=== PATIENT | female | born 1940 | race Caucasian/White ===

== ENCOUNTER 2017-02-24 06:13 | Inpatient (IN) | payer MEDICARE, BC ==
[2017-02-24] MEDS ORDERED: Lactated Ringers 1,000 ML IV SCH (07:00)
[2017-02-24] MEDS ORDERED: Scopolamine 1.5 MG Transdermal Patch TRDERM SCH (07:00)
[2017-02-24] MEDS ORDERED: Povidone-Iodine 10% Soln 118.25 ML Bottle ONE (07:16)
[2017-02-24] MEDS ORDERED: Succinylcholine/Normal Saline 200 MG/10 ML Syringe ONE (08:03)
[2017-02-24] MEDS ORDERED: Propofol 200 MG/20 ML SDV ONE ×4 (08:03→12:54)
[2017-02-24] MEDS ORDERED: fentaNYL 250 MCG/5 ML SDV ONE ×2 (08:03→08:14)
[2017-02-24] MEDS ORDERED: Rocuronium 50 MG/5 ML Vial ONE ×2 (08:03→10:03)
[2017-02-24] MEDS ORDERED: Ondansetron 4 MG/2 ML SDV ONE ×2 (08:03→13:52)
[2017-02-24] MEDS ORDERED: Dexamethasone 4 MG/ML SDV ONE (08:03)
[2017-02-24] MEDS ORDERED: Neostigmine Methylsulfate 1 MG/ML 5 ML Syringe ONE (08:03)
[2017-02-24] MEDS ORDERED: ceFAZolin 1 GM in Premix Bag 1 BAG IV ONE (08:30)
[2017-02-24] MEDS ORDERED: ceFAZolin 2 GM in Sodium Chloride 0.9% 50 ML IV ONE (08:30)
[2017-02-24] MEDS: SODIUM CHLORIDE 0.9% IV SCH ×3 (09:10→15:48)
[2017-02-24] MEDS: TRANEXAMIC ACID IV SCH ×3 (09:10→15:48)
[2017-02-24] MEDS: Ketamine 500 MG/5 ML MDV IV ONE ×2 (09:48→15:48)
[2017-02-24] MEDS: Thrombin (Bovine) 5,000 Unit Kit ONE ×2 (09:55→10:48)
[2017-02-24] MEDS ORDERED: ceFAZolin 1 GM Vial ONE (12:37)
[2017-02-24] MEDS ORDERED: Thrombin (Bovine) 5,000 Unit Kit ONE (12:37)
[2017-02-24] MEDS ORDERED: ePHEDrine 50 MG/ML SDV ONE (12:56)
[2017-02-24] MEDS ORDERED: Lactated Ringers 1,000 ML ONE ×3 (13:00→13:28)
[2017-02-24] MEDS: Ropivacaine 49.25 ML, Ketorolac 30 MG, EPINEPHrine 0.5 MG, cloNIDine 80 MCG, Sodium Chl... INJECT ONE ×10 (13:59→15:48)
[2017-02-24] MEDS ORDERED: Ondansetron 4 MG/2 ML SDV IVPUSH PRN (14:28)
[2017-02-24] MEDS ORDERED: HYDROmorphone 1 MG/ML Syringe IVPUSH PRN (14:28)
[2017-02-24] MEDS ORDERED: Sodium Chloride 0.9% 10 ML Syringe FLUSH PRN (14:28)
[2017-02-24] MEDS ORDERED: Naloxone 0.4 MG/ML SDV IVPUSH PRN (14:28)
[2017-02-24] MEDS ORDERED: Acetaminophen/oxyCODONE 325-5 MG Tab PO PRN (14:28)
[2017-02-24] MEDS ORDERED: Aluminum Hydroxide/Magnesium Hydroxide/Simethicone Susp 30 ML Cup PO PRN (14:28)
[2017-02-24] MEDS ORDERED: Zolpidem 5 MG Tab PO PRN (14:28)
[2017-02-24] MEDS ORDERED: Magnesium Hydroxide 400 MG/5 ML Susp 30 ML Cup PO PRN (14:28)
[2017-02-24] MEDS ORDERED: Sennosides 8.6 MG Tab PO PRN (14:28)
[2017-02-24] MEDS ORDERED: Dexamethasone 4 MG/ML SDV IVPUSH SCH (16:00)
[2017-02-24] MEDS: Ketorolac 30 MG/ML SDV IVPUSH SCH ×2 (16:15→22:44)
[2017-02-24] MEDS: ceFAZolin 1 GM in Premix Bag 1 BAG IV SCH (16:15)
--- NOTE | 2017-02-24 17:22 | PCM.PN ---
- General Info Date of Service: 02/24/17 Functional Status: Reports: pain controlled, urinating - Review of Systems Pulmonary: Denies: shortness of breath Musculoskeletal: Reports: back pain Neurological: Reports: Tingling (mild right lower leg) Systems Review Comment:: No acute events since her arrival on the floor following surgery. She reports moderate back pain at this time. No pain radiating into her legs but her left foot feels a little tingly. Right foot feels like it moves a little bit slow but no tingling. Vital signs have all been stable. Urine output is borderline low. No complaints of shortness of breath or abdominal pain. - Patient Data Vitals - most recent: Last Vital Signs Temp 36.9 C 02/24/17 17:10 Pulse 71 02/24/17 17:10 Resp 18 02/24/17 17:10 BP 100/52 L 02/24/17 17:10 Pulse Ox 100 02/24/17 17:10 Weight - most recent: 57.153 kg I&O - last 24 hours: Intake & Output 02/24/17 02/24/17 02/24/17 06:59 14:59 22:59 Intake Total 2600 Balance 2600 Med Orders - Current: Current Medications Al Hydroxide/Mg Hydroxide (Mag-Al Plus) 30 ml PO Q4H PRN PRN Reason: Indigestion Alprazolam (Xanax) 0.125 mg PO TID [facility] Citalopram Hydrobromide (Celexa) 5 mg PO DAILY [facility] Dexamethasone (Dexamethasone) 4 mg IVPUSH Q6H [facility] Stop: 02/25/17 10:01 Last Admin: 02/24/17 16:15 Dose: 4 mg Diazepam (Valium) 5 mg IVPUSH Q6H PRN PRN Reason: Spasms Hydromorphone HCl (Dilaudid) 1 mg IVPUSH Q2H PRN PRN Reason: Pain Last Admin: 02/24/17 16:10 Dose: 1 mg Cefazolin Sodium/Dextrose 1 gm (/ Premix) 50 mls @ 100 mls/hr IV Q8H [facility] Stop: 02/25/17 08:29 Last Admin: 02/24/17 16:15 Dose: 100 mls/hr Lactated Ringer's (Ringers, Lactated) 500 mls @ 500 mls/hr IV ASDIRECTED [facility] Stop: 02/24/17 18:31 Lactated Ringer's (Ringers, Lactated) 1,000 mls @ 75 mls/hr IV ASDIRECTED [facility] Ketorolac Tromethamine (Toradol) 15 mg IVPUSH Q6H [facility] Stop: 02/24/17 22:01 Last Admin: 02/24/17 16:15 Dose: 15 mg Magnesium Hydroxide (Milk Of Magnesia) 30 ml PO BID PRN PRN Reason: Constipation Naloxone HCl (Narcan) 0.2 mg IVPUSH ONETIME PRN PRN Reason: Oversedation Non-Formulary Medication (Mirtazapine [Remeron]) 22.5 mg PO BEDTIME [facility] Ondansetron HCl (Zofran) 8 mg IVPUSH Q4H PRN PRN Reason: Nausea/Vomiting Oxycodone/Acetaminophen (Percocet 325-5 Mg) 2 tab PO Q4H PRN PRN Reason: Pain Scopolamine (Transderm-Scop) 1.5 mg TRDERM Q72H [facility] Stop: 02/27/17 05:00 Last Admin: 02/24/17 07:38 Dose: 1.5 mg Senna (Senna) 8.6 mg PO BID PRN PRN Reason: Constipation Sodium Chloride (Saline Flush) 10 ml FLUSH ASDIRECTED PRN PRN Reason: Keep Vein Open Zolpidem Tartrate (Ambien) 5 mg PO BEDTIME PRN PRN Reason: Sleep Discontinued Medications Cefazolin Sodium (Ancef) Confirm Administered Dose 1 gm .ROUTE .STK-MED ONE Stop: 02/24/17 12:38 Ropivacaine 49.25 ml/Ketorolac Tromethamine 30 mg/Epinephrine HCl 0.5 mg/ Clonidine HCl 80 mcg/ Sodium Chloride 48.45 ml 0 ml INJECT ONETIME ONE Stop: 02/24/17 09:01 Last Admin: 02/24/17 15:48 Dose: Not Given Dexamethasone (Dexamethasone) Confirm Administered Dose 4 mg .ROUTE .STK-MED ONE Stop: 02/24/17 08:04 Ephedrine Sulfate (Ephedrine Sulfate) Confirm Administered Dose 50 mg .ROUTE .STK-MED ONE Stop: 02/24/17 12:57 Fentanyl (Sublimaze) Confirm Administered Dose 500 mcg .ROUTE .STK-MED ONE Stop: 02/24/17 08:04 Fentanyl (Sublimaze) Confirm Administered Dose 250 mcg .ROUTE .STK-MED ONE Stop: 02/24/17 08:15 Glycopyrrolate () Confirm Administered Dose 1 mg .ROUTE .STK-MED ONE Stop: 02/24/17 08:04 Tranexamic Acid 595 mg/ Sodium (Chloride) 55.95 mls @ 223.8 mls/hr IV Q3H [facility] Stop: 02/24/17 12:14 Last Admin: 02/24/17 15:48 Dose: Not Given Ketamine HCl 100 mg/ Sodium (Chloride) 100 mls @ 16.4 mls/hr IV ASDIRECTED [facility] Stop: 02/24/17 12:00 Last Admin: 02/24/17 09:49 Dose: 16.4 mls/hr Lactated Ringer's (Ringers, Lactated) 1,000 mls @ 0 mls/hr IV ASDIRECTED [facility] PRN Reason: KVO Last Admin: 02/24/17 07:10 Dose: 25 mls/hr Cefazolin Sodium/Dextrose 1 gm (/ Premix) 50 mls @ 100 mls/hr IV ONETIME ONE Stop: 02/24/17 08:59 Last Admin: 02/24/17 08:47 Dose: 100 mls/hr Lactated Ringer's (Ringers, Lactated) Confirm Administered Dose 1,000 mls @ as directed .ROUTE .STK-MED ONE Stop: 02/24/17 13:01 Lactated Ringer's (Ringers, Lactated) Confirm Administered Dose 1,000 mls @ as directed .ROUTE .STK-MED ONE Stop: 02/24/17 13:01 Lactated Ringer's (Ringers, Lactated) Confirm Administered Dose 1,000 mls @ as directed .ROUTE .STK-MED ONE Stop: 02/24/17 13:29 Ketamine HCl (Ketalar) 27 mg IV ONETIME ONE Stop: 02/24/17 09:01 Last Admin: 02/24/17 15:48 Dose: Not Given Neostigmine Methylsulfate (Neostigmine) Confirm Administered Dose 5 mg .ROUTE .STK-MED ONE Stop: 02/24/17 08:04 Ondansetron HCl (Zofran) Confirm Administered Dose 4 mg .ROUTE .STK-MED ONE Stop: 02/24/17 08:04 Ondansetron HCl (Zofran) Confirm Administered Dose 4 mg .ROUTE .K-MED ONE Stop: 02/24/17 13:53 Povidone Iodine (Betadine 10% Soln) Confirm Administered Dose 1 ml .ROUTE .STK- MED ONE Stop: 02/24/17 07:17 Last Admin: 02/24/17 07:58 Dose: 30 ml Propofol (Diprivan 20 Ml) Confirm Administered Dose 200 mg .ROUTE .STK-MED ONE Stop: 02/24/17 08:04 Propofol (Diprivan 20 Ml) Confirm Administered Dose 600 mg .ROUTE .STK-MED ONE Stop: 02/24/17 08:07 Propofol (Diprivan 20 Ml) Confirm Administered Dose 400 mg .ROUTE .STK-MED ONE Stop: 02/24/17 11:04 Propofol (Diprivan 20 Ml) Confirm Administered Dose 400 mg .ROUTE .[facility]-MED ONE Stop: 02/24/17 12:55 Rocuronium [place] (Zemuron) Confirm Administered Dose 50 mg .ROUTE .ST-MED ONE Stop: 02/24/17 08:04 Rocuronium [place] (Zemuron) Confirm Administered Dose 50 mg .ROUTE .[facility]-MED ONE Stop: 02/24/17 10:04 Sodium Chloride (Normal Saline) 1,000 ml IRR .STK-MED ONE Stop: 02/24/17 09:31 Last Admin: 02/24/17 09:30 Dose: 1,000 ml Succinylcholine Chloride (Succinylcholine In Ns Pf) Confirm Administered Dose 200 mg .ROUTE .[facility]-MED ONE Stop: 02/24/17 08:04 Thrombin (Thrombin-Jmi) Confirm Administered Dose 10,000 unit .ROUTE .STK-MED ONE Stop: 02/24/17 07:17 Last Admin: 02/24/17 10:48 Dose: 5,000 unit - Exam Quality Assessment: No: supplemental oxygen General: alert, oriented, cooperative, no acute distress Neck: supple, trachea midline Lungs: Clear to auscultation, Normal respiratory effort Cardiovascular: Regular Rate, Regular Rhythm Abdomen: bowel sounds present, soft, no tenderness, no distension Extremities: no edema, normal pulses, no cyanosis Skin: warm, dry Psy/Mental Status: alert, normal affect - Problem List & Annotations (1) Spondylolisthesis, lumbar region SNOMED Code(s): 360186881044489 Code(s): M43.16 - SPONDYLOLISTHESIS, LUMBAR REGION Status: Chronic Current Visit: No (2) Spinal stenosis of lumbar region SNOMED Code(s): 57367752 Code(s): M48.06 - SPINAL STENOSIS, LUMBAR REGION Status: Chronic Current Visit: No - Problem List Review Problem List Initiated/Reviewed/Updated: Yes - My Orders Last 24 Hours: My Active Orders 02/24/17 17:30 Lactated Ringers [Ringers, Lactated] 500 ml IV ASDIRECTED 02/24/17 18:30 Lactated Ringers [Ringers, Lactated] 1,000 ml IV ASDIRECTED 02/24/17 21:00 ALPRAZolam [Xanax] 0.125 mg PO TID Mirtazapine [Remeron] 22.5 mg PO BEDTIME 02/25/17 09:00 Citalopram [Celexa] 5 mg PO DAILY - Plan Plan:: ASSESSMENT AND PLAN - Lumbar spondylolisthesis and spinal stenosis - status post surgical intervention today. Stable postoperatively other than borderline low urine output. Pain moderately well controlled. -Pain control -IV fluid bolus and gentle infusion overnight -Monitor intake and output -Physical therapy in the morning Depression - history of this, seems stable at this time. Home medications will be continued. Luis Gregory M.D.
[2017-02-24] MEDS ORDERED: Lactated Ringers 500 ML IV ONE (17:30)
[2017-02-24] MEDS: Lactated Ringers 1,000 ML IV SCH (20:14)
[2017-02-24] MEDS: Dexamethasone 4 MG/ML SDV IVPUSH SCH (20:21)
[2017-02-24] MEDS: ALPRAZolam 0.25 MG Tab PO SCH (20:22)
[2017-02-24] MEDS: Mirtazapine 15 MG Tab PO SCH (20:22)
[2017-02-24] MEDS: Citalopram 10 MG Tab PO SCH (20:27)
[2017-02-24] MEDS ORDERED: MIRTAZAPINE 22.5 MG PO SCH (21:00)
[2017-02-25] MEDS: ceFAZolin 1 GM in Premix Bag 1 BAG IV SCH ×2 (01:06→08:46)
[2017-02-25] MEDS: Dexamethasone 4 MG/ML SDV IVPUSH SCH ×4 (01:08→19:49)
--- NOTE | 2017-02-25 07:36 | OR ---
DATE OF PROCEDURE: 02/24/2017 PREOPERATIVE DIAGNOSES: 1. L4-L5 stenosis, L5-S1 stenosis. 2. L4-L5 spondylolisthesis. 3. L5-S1 spondylolisthesis. 4. Lumbar radiculopathy. POSTOPERATIVE DIAGNOSES: 1. L4-L5 stenosis, L5-S1 stenosis. 2. L4-L5 spondylolisthesis. 3. L5-S1 spondylolisthesis. 4. Lumbar radiculopathy. PROCEDURES: 1. Posterior lumbar fusion with posterior lateral fusion and interbody fusion, L4-L5 and L5-S1. 2. Segmental instrumentation at L4-L5, and L5-S1. 3. Placement of interbody device at L4-L5 and L5-S1. 4. Laminectomy required in addition to interbody placement at L4-L5 and L5-S1. 5. Use of autograft from laminectomy site applied to the posterior lateral gutter as well as in the interbody spaces. GUILLOTINE TRIMMER: Daria Marie NP. ANESTHESIA: General endotracheal intubation. FLUID: Lactated Ringer solution. ESTIMATED BLOOD LOSS: 550 mL. COMPLICATIONS: None. SPECIMEN: None. DISCHARGE DISPOSITION: Stable to PACU. INDICATION FOR THE PROCEDURE: The patient was seen preoperatively in the clinic. She had been suffering for quite a long time with back pain and leg pain. She had undergone nonoperative treatment which failed. Preoperative imaging confirmed the above-mentioned diagnosis on both plain films and MRI. Risks and benefits of the procedure were explained to the patient. Informed consent was obtained. PROCEDURE IN DETAILS: The patient was seen preoperatively by myself, and the Anesthesia staff in the preop holding area, where the operative site was marked. She was brought to the operative suite by the Anesthesia staff, where general anesthesia was administered. Neuromonitoring leads were placed. A sterile fluoroscopy drape was placed. A sterile Canales catheter was placed. The patient was then placed into a prone position on a Glenn table. All extremities were found to be well padded. The patient was then prepped and draped in a sterile manner. Time-out was called and identifying the correct patient, the correct procedure, the correct site, and antibiotics had been with appropriate period of time. A midline incision was made over the L3 to the S2 vertebrae and carried down to the deep fascia. Bleeding was controlled with Bovie electrocautery as well as an Aquamantys unit. Gu elevator was used for dissection of the spinous processes and lamina and transverse processes of L4, L5, and S1 with the sacral ala. The Versatrac retractor was then inserted using two #65 blades and two #35 blades. We then controlled more bleeding with the electrocautery unit including the Aquamantys and bipolar electrocautery. A great deal of time was spent defining the anatomy by taking off as much soft tissue as possible. Pedicle screws were placed in this manner. The pedicle was identified on the lateral view. The facets were then drilled down and removed with rongeurs. The facet was decorticated and a PediGuard was used to make a tract for the screw. We then used a pedicle probe to make sure that all four sides had bone. We then tapped our screws, then a pedicle probe and then placed our screws. I did the left side first, followed by the right side. This took a considerable amount of time secondary to the spondylolisthesis deformity. All screws were tested above 16 on neuro monitoring, we then used the drill to drill through the lamina bilaterally and then using a "clam shell" technique and a Gu removed the lamina of L4 and L5 on block. This was done without ever having do touch the dura. Small amount of bone from the lateral recesses was removed as well as a small amount of ligamentum flavum, because of the spondylolisthesis on the right, it was evident that the L5 nerve root had been compressed for quite some time. It is very thinned out and poor looking. It took more time to make sure that the disc was removed underneath of it as well as any bone adjacent to it and this was directly adjacent to the pedicle of L5. I then incised the anulus of L4 and L5 bilaterally. I had removed the facets bilaterally for preparation of the reduction maneuver to make sure that our nerve roots were free bilaterally at L4-5 and L5-S1. I then started on the left side and then used harshil from 7 to 11 at L4-L5 and L5-S1 and then I did this on the right side. I did use some Floseal to control some bleeding. We then, at that time, used a straight curette and then going down curettes for disk space preparation with removal of one of her discs was left which was very minimal at both L4-L5 and L5-S1. I then inserted a 10 shaver and 11 shaver at L5-S1 on each side and then attached 65-mm rods. I torqued these down at S1 and then used reduction clips at L4 to reduce the evie to the L4 screws. I have used six five screws at S1 and L4 and then I used a seven five diameter screws at L5. This was due to the decreased screw length which was 35 mm and that I knew that this would have more pullout strength for the seven five screw being that was level with the most reduction. I did not lock the rods at L4, but I then used tulips and under fluoroscopy and under neural monitoring, reduced the rods to the tulips using the reduction clips. Once this had been accomplished, I then focused my attention on interbody placement. I placed bone graft using a final anteriorly at each the L4-L5 and L5-S1 disc space which is a combination of synthetic allograft as well as autograft from the laminectomy which had been run through the bone mill. We then placed an 8 x 22 interbody spacer at L5-S1 and then expanded that under fluoroscopy. I did not expand it all the way. I then repeated the interbody spacer placement at L4-L5 and expanded it. There was residual spondylolisthesis at L4-L5. However because both of the facets had been removed bilaterally and the nerve roots were free, I was not concerned as well as total laminectomy L4. There was a slight bursa on the left at S1 on the left, when we were doing our reduction however that went away. A neuro monitoring was normal at baseline. We then irrigated copiously with Betadine infused irrigation and then placed our graft in the left gutter. The antibodies had been placed through the right side. After this had been accomplished, we then applied some Gel- Foam. There was some bleeding that needed to be taken care of on the left side at L4-L5. This was controlled with the Gel-Foam as well as Floseal and using the Aquamantys unit. We then closed with #2 interlocking suture, followed by #2 continue suture followed by 0-Vicryl interrupted sutures, closed the deep subcutaneous space followed by 2-0 Vicryl, followed by 2-0 Monocryl, and followed by sterile dressing. The patient was then allowed to awaken from general anesthesia and flipped into a supine position on the hospital bed. Neuromonitoring leads were removed and she was taken to the PACU in a stable condition. Ja Briceno DO /[id number]
[2017-02-25] MEDS: Citalopram 10 MG Tab PO SCH (08:44)
[2017-02-25] MEDS: ALPRAZolam 0.25 MG Tab PO SCH ×3 (08:44→20:35)
--- NOTE | 2017-02-25 09:37 | CR ---
Lumbar Spine 2 or 3V HISTORY: post op FINDINGS: Procedure changes are seen with resection of the spinous process and lamina at L4 and L5. Partial la minectomy changes appear to be present at L3. There is posterior evie and pedicle screw fusion. Bone graft material is seen bilaterally. Intervertebral disc fusion spacers are present at L4-5 and L5-S1 . Grade 1 anterolisthesis at L4-5 is stable. No significant anterolisthesis can be visualized at L5- S1. There is no compression fracture. Bony structures are osteopenic. Atherosclerotic aorta is noted . IMPRESSION: Stable postoperative and fusion changes lower lumbar spine compared with intraoperative fluoroscopic images dated 02/24/2017.
[2017-02-25] MEDS: Lactated Ringers 1,000 ML IV SCH (10:46)
--- NOTE | 2017-02-25 15:13 | PCM.PN ---
- General Info Date of Service: 02/25/17 Functional Status: Reports: pain controlled, tolerating diet, ambulating - Review of Systems Neurological: Reports: Paresthesia (left leg), Other (left foot weakness) Systems Review Comment:: No acute events overnight. Pain is been well controlled and she has been ambulating. No behavior issues. She continues to report some weakness in her left foot. No fevers. Urine output has improved. - Patient Data Vitals - most recent: Last Vital Signs Temp 37.1 C 02/25/17 11:03 Pulse 64 02/25/17 11:03 Resp 18 02/25/17 11:03 BP 109/60 02/25/17 11:03 Pulse Ox 94 L 02/25/17 13:11 Weight - most recent: 57.153 kg I&O - last 24 hours: Intake & Output 02/25/17 02/25/17 02/25/17 06:59 14:59 22:59 Intake Total 840 1120 Output Total 650 800 Balance 190 320 Lab Results last 24 hrs: Laboratory Results - last 24 hr 02/25/17 02/25/17 Range/Units 05:45 05:45 WBC 13.7 H (4.5-11.0) K/uL RBC 3.45 (3.30-5.50) M/uL Hgb 10.5 L D (12.0-15.0) g/dL Hct 32.5 L (36.0-48.0) % MCV 94 (80-98) fL MCH 30 (27-31) pg MCHC 32 (32-36) % Plt Count 138 L (150-400) K/uL Neut % (Auto) 92 H (36-66) % Lymph % (Auto) 5 L (24-44) % [place] % (Auto) 3 (2-6) % Eos % (Auto) 0 L (2-4) % Baso % (Auto) 0 (0-1) % Sodium 141 (140-148) mmol/L Potassium 4.4 (3.6-5.2) mmol/L Chloride 108 (100-108) mmol/L Carbon Dioxide 26 (21-32) mmol/L Anion Gap 7.0 (5.0-14.0) mmol/L BUN 20 H (7-18) mg/dL Creatinine 1.1 H (0.6-1.0) mg/dL Est Cr Clr Drug Dosing 38.16 mL/min Estimated GFR (MDRD) 48 L (>60) Glucose 134 H (74-106) mg/dL Calcium 8.1 L (8.5-10.1) mg/dL Med Orders - Current: Current Medications Al Hydroxide/Mg Hydroxide (Mag-Al Plus) 30 ml PO Q4H PRN PRN Reason: Indigestion Alprazolam (Xanax) 0.125 mg PO TID COUNTS INCLUDE 234 BEDS AT THE [facility] Last Admin: 02/25/17 08:44 Dose: 0.125 mg Citalopram Hydrobromide (Celexa) 5 mg PO DAILY COUNTS INCLUDE 234 BEDS AT THE [facility] Last Admin: 02/25/17 08:44 Dose: 5 mg Dexamethasone (Dexamethasone) 8 mg IVPUSH Q6H COUNTS INCLUDE 234 BEDS AT THE [facility] Stop: 02/26/17 02:01 Last Admin: 02/25/17 08:33 Dose: 8 mg Diazepam (Valium) 5 mg IVPUSH Q6H PRN PRN Reason: Spasms Hydromorphone HCl (Dilaudid) 1 mg IVPUSH Q2H PRN PRN Reason: Pain Last Admin: 02/24/17 16:10 Dose: 1 mg Lactated Ringer's (Ringers, Lactated) 1,000 mls @ 75 mls/hr IV ASDIRECTED COUNTS INCLUDE 234 BEDS AT THE [facility] Last Admin: 02/25/17 10:46 Dose: 75 mls/hr Magnesium Hydroxide (Milk Of Magnesia) 30 ml PO BID PRN PRN Reason: Constipation Mirtazapine (Remeron) 22.5 mg PO BEDTIME COUNTS INCLUDE 234 BEDS AT THE [facility] Last Admin: 02/24/17 20:22 Dose: 22.5 mg Naloxone HCl (Narcan) 0.2 mg IVPUSH ONETIME PRN PRN Reason: Oversedation Ondansetron HCl (Zofran) 8 mg IVPUSH Q4H PRN PRN Reason: Nausea/Vomiting Oxycodone/Acetaminophen (Percocet 325-5 Mg) 2 tab PO Q4H PRN PRN Reason: Pain Scopolamine (Transderm-Scop) 1.5 mg TRDERM Q72H COUNTS INCLUDE 234 BEDS AT THE [facility] Stop: 02/27/17 05:00 Last Admin: 02/24/17 07:38 Dose: 1.5 mg Senna (Senna) 8.6 mg PO BID PRN PRN Reason: Constipation Sodium Chloride (Saline Flush) 10 ml FLUSH ASDIRECTED PRN PRN Reason: Keep Vein Open Zolpidem Tartrate (Ambien) 5 mg PO BEDTIME PRN PRN Reason: Sleep Discontinued Medications Cefazolin Sodium (Ancef) Confirm Administered Dose 1 gm .ROUTE .STK-MED ONE Stop: 02/24/17 12:38 Ropivacaine 49.25 ml/Ketorolac Tromethamine 30 mg/Epinephrine HCl 0.5 mg/ Clonidine HCl 80 mcg/ Sodium Chloride 48.45 ml 0 ml INJECT ONETIME ONE Stop: 02/24/17 09:01 Last Admin: 02/24/17 15:48 Dose: Not Given Dexamethasone (Dexamethasone) Confirm Administered Dose 4 mg .ROUTE .STK-[facility] ONE Stop: 02/24/17 08:04 Dexamethasone (Dexamethasone) 4 mg IVPUSH Q6H COUNTS INCLUDE 234 BEDS AT THE [facility] Stop: 02/25/17 10:01 Last Admin: 02/24/17 16:15 Dose: 4 mg Dexamethasone (Dexamethasone) 8 mg IVPUSH Q6H COUNTS INCLUDE 234 BEDS AT THE [facility] Stop: 02/25/17 13:45 Last Admin: 02/25/17 01:08 Dose: 8 mg Ephedrine Sulfate (Ephedrine Sulfate) Confirm Administered Dose 50 mg .ROUTE .STK-MED ONE Stop: 02/24/17 12:57 Fentanyl (Sublimaze) Confirm Administered Dose 500 mcg .ROUTE .STK-MED ONE Stop: 02/24/17 08:04 Fentanyl (Sublimaze) Confirm Administered Dose 250 mcg .ROUTE .STK-MED ONE Stop: 02/24/17 08:15 Glycopyrrolate () Confirm Administered Dose 1 mg .ROUTE .STK-MED ONE Stop: 02/24/17 08:04 Tranexamic Acid 595 mg/ Sodium (Chloride) 55.95 mls @ 223.8 mls/hr IV Q3H COUNTS INCLUDE 234 BEDS AT THE [facility] Stop: 02/24/17 12:14 Last Admin: 02/24/17 15:48 Dose: Not Given Ketamine HCl 100 mg/ Sodium (Chloride) 100 mls @ 16.4 mls/hr IV ASDIRECTED COUNTS INCLUDE 234 BEDS AT THE [facility] Stop: 02/24/17 12:00 Last Admin: 02/24/17 09:49 Dose: 16.4 mls/hr Lactated Ringer's (Ringers, Lactated) 1,000 mls @ 0 mls/hr IV ASDIRECTED COUNTS INCLUDE 234 BEDS AT THE [facility] PRN Reason: KVO Last Admin: 02/24/17 07:10 Dose: 25 mls/hr Cefazolin Sodium/Dextrose 1 gm (/ Premix) 50 mls @ 100 mls/hr IV ONETIME ONE Stop: 02/24/17 08:59 Last Admin: 02/24/17 08:47 Dose: 100 mls/hr Lactated Ringer's (Ringers, Lactated) Confirm Administered Dose 1,000 mls @ as directed .ROUTE .STK-MED ONE Stop: 02/24/17 13:01 Lactated Ringer's (Ringers, Lactated) Confirm Administered Dose 1,000 mls @ as directed .ROUTE .STK-MED ONE Stop: 02/24/17 13:01 Lactated Ringer's (Ringers, Lactated) Confirm Administered Dose 1,000 mls @ as directed .ROUTE .STK-MED ONE Stop: 02/24/17 13:29 Cefazolin Sodium/Dextrose 1 gm (/ Premix) 50 mls @ 100 mls/hr IV Q8H COUNTS INCLUDE 234 BEDS AT THE [facility] Stop: 02/25/17 08:29 Last Admin: 02/25/17 08:46 Dose: 100 mls/hr Lactated Ringer's (Ringers, Lactated) 500 mls @ 500 mls/hr IV BOLUS ONE Stop: 02/24/17 18:29 Last Admin: 02/24/17 17:15 Dose: 500 mls/hr Ketamine HCl (Ketalar) 27 mg IV ONETIME ONE Stop: 02/24/17 09:01 Last Admin: 02/24/17 15:48 Dose: Not Given Ketorolac Tromethamine (Toradol) 15 mg IVPUSH Q6H COUNTS INCLUDE 234 BEDS AT THE [facility] Stop: 02/24/17 22:01 Last Admin: 02/24/17 22:44 Dose: 15 mg Neostigmine Methylsulfate (Neostigmine) Confirm Administered Dose 5 mg .ROUTE .STK-MED ONE Stop: 02/24/17 08:04 Ondansetron HCl (Zofran) Confirm Administered Dose 4 mg .ROUTE .STK-MED ONE Stop: 02/24/17 08:04 Ondansetron HCl (Zofran) Confirm Administered Dose 4 mg .ROUTE .STK-MED ONE Stop: 02/24/17 13:53 Povidone Iodine (Betadine 10% Soln) Confirm Administered Dose 1 ml .ROUTE .STK- MED ONE Stop: 02/24/17 07:17 Last Admin: 02/24/17 07:58 Dose: 30 ml Propofol (Diprivan 20 Ml) Confirm Administered Dose 200 mg .ROUTE .STK-MED ONE Stop: 02/24/17 08:04 Propofol (Diprivan 20 Ml) Confirm Administered Dose 600 mg .ROUTE .STK-MED ONE Stop: 02/24/17 08:07 Propofol (Diprivan 20 Ml) Confirm Administered Dose 400 mg .ROUTE .STK-MED ONE Stop: 02/24/17 11:04 Propofol (Diprivan 20 Ml) Confirm Administered Dose 400 mg .ROUTE .STK-MED ONE Stop: 02/24/17 12:55 Rocuronium [place] (Zemuron) Confirm Administered Dose 50 mg .ROUTE .STK-MED ONE Stop: 02/24/17 08:04 Rocuronium [place] (Zemuron) Confirm Administered Dose 50 mg .ROUTE .K-MED ONE Stop: 02/24/17 10:04 Sodium Chloride (Normal Saline) 1,000 ml IRR .STK-MED ONE Stop: 02/24/17 09:31 Last Admin: 02/24/17 09:30 Dose: 1,000 ml Succinylcholine Chloride (Succinylcholine In Ns Pf) Confirm Administered Dose 200 mg .ROUTE .STK-MED ONE Stop: 02/24/17 08:04 Thrombin (Thrombin-Jmi) Confirm Administered Dose 10,000 unit .ROUTE .STK-MED ONE Stop: 02/24/17 07:17 Last Admin: 02/24/17 10:48 Dose: 5,000 unit - Exam Quality Assessment: No: supplemental oxygen General: alert, oriented, cooperative, no acute distress Neck: supple Abdomen: soft, no distension Extremities: no edema, no cyanosis Skin: warm, dry Psy/Mental Status: alert, normal affect - Problem List & Annotations (1) Spondylolisthesis, lumbar region SNOMED Code(s): 260922065298100 Code(s): M43.16 - SPONDYLOLISTHESIS, LUMBAR REGION Status: Chronic Current Visit: No (2) Spinal stenosis of lumbar region SNOMED Code(s): 89390782 Code(s): M48.06 - SPINAL STENOSIS, LUMBAR REGION Status: Chronic Current Visit: No - Problem List Review Problem List Initiated/Reviewed/Updated: Yes - My Orders Last 24 Hours: My Active Orders 02/24/17 18:30 Lactated Ringers [Ringers, Lactated] 1,000 ml IV ASDIRECTED 02/24/17 21:00 ALPRAZolam [Xanax] 0.125 mg PO TID Mirtazapine [Remeron] 22.5 mg PO BEDTIME 02/25/17 09:00 Citalopram [Celexa] 5 mg PO DAILY - Plan Plan:: ASSESSMENT AND PLAN - Lumbar spondylolisthesis and spinal stenosis - status post surgical intervention 02/24. Urine output has improved with one fluid bolus. Pain is well- controlled. She is working with physical therapy. -Pain control -Discontinue IV fluids -Monitor intake and output -Physical therapy in the morning Depression - stable. Luis Gregory M.D.
[2017-02-25] MEDS: Mirtazapine 15 MG Tab PO SCH (20:26)
[2017-02-26] MEDS: Dexamethasone 4 MG/ML SDV IVPUSH SCH (02:38)
--- NOTE | 2017-02-26 09:04 | PCM.PN ---
- General Info Date of Service: 02/25/17 Functional Status: Reports: pain controlled, tolerating diet, ambulating, urinating - Patient Data Vitals - most recent: Last Vital Signs Temp 37.1 C 02/26/17 07:08 Pulse 75 02/26/17 07:08 Resp 16 02/26/17 07:08 BP 113/68 02/26/17 07:08 Pulse Ox 96 02/26/17 07:08 Weight - most recent: 126 lb I&O - last 24 hours: Intake & Output 02/25/17 02/26/17 02/26/17 22:59 06:59 14:59 Intake Total 800 Balance 800 Lab Results last 24 hrs: Laboratory Results - last 24 hr 02/26/17 02/26/17 Range/Units 04:45 04:45 WBC 12.6 H (4.5-11.0) K/uL RBC 3.18 L (3.30-5.50) M/uL Hgb 9.6 L (12.0-15.0) g/dL Hct 30.2 L (36.0-48.0) % MCV 95 (80-98) fL MCH 30 (27-31) pg MCHC 32 (32-36) % Plt Count 123 L (150-400) K/uL Neut % (Auto) 89 H (36-66) % Lymph % (Auto) 5 L (24-44) % [place] % (Auto) 6 (2-6) % Eos % (Auto) 0 L (2-4) % Baso % (Auto) 0 (0-1) % Sodium 144 (140-148) mmol/L Potassium 4.8 (3.6-5.2) mmol/L Chloride 111 H (100-108) mmol/L Carbon Dioxide 28 (21-32) mmol/L Anion Gap 9.8 (5.0-14.0) mmol/L BUN 27 H (7-18) mg/dL Creatinine 1.0 (0.6-1.0) mg/dL Est Cr Clr Drug Dosing 41.97 mL/min Estimated GFR (MDRD) 54 L (>60) Glucose 135 H (74-106) mg/dL Calcium 8.2 L (8.5-10.1) mg/dL Med Orders - Current: Current Medications Al Hydroxide/Mg Hydroxide (Mag-Al Plus) 30 ml PO Q4H PRN PRN Reason: Indigestion Alprazolam (Xanax) 0.125 mg PO TID [facility] Last Admin: 02/25/17 20:35 Dose: 0.125 mg Citalopram Hydrobromide (Celexa) 5 mg PO BEDTIME [place] Diazepam (Valium) 5 mg IVPUSH Q6H PRN PRN Reason: Spasms Hydromorphone HCl (Dilaudid) 1 mg IVPUSH Q2H PRN PRN Reason: Pain Last Admin: 02/24/17 16:10 Dose: 1 mg Magnesium Hydroxide (Milk Of Magnesia) 30 ml PO BID PRN PRN Reason: Constipation Last Admin: 02/25/17 16:15 Dose: 30 ml Mirtazapine (Remeron) 22.5 mg PO BEDTIME [facility] Last Admin: 02/25/17 20:26 Dose: 22.5 mg Naloxone HCl (Narcan) 0.2 mg IVPUSH ONETIME PRN PRN Reason: Oversedation Ondansetron HCl (Zofran) 8 mg IVPUSH Q4H PRN PRN Reason: Nausea/Vomiting Oxycodone/Acetaminophen (Percocet 325-5 Mg) 2 tab PO Q4H PRN PRN Reason: Pain Scopolamine (Transderm-Scop) 1.5 mg TRDERM Q72H [facility] Stop: 02/27/17 05:00 Last Admin: 02/24/17 07:38 Dose: 1.5 mg Senna (Senna) 8.6 mg PO BID PRN PRN Reason: Constipation Last Admin: 02/25/17 16:15 Dose: 8.6 mg Sodium Chloride (Saline Flush) 10 ml FLUSH ASDIRECTED PRN PRN Reason: Keep Vein Open Zolpidem Tartrate (Ambien) 5 mg PO BEDTIME PRN PRN Reason: Sleep Discontinued Medications Cefazolin Sodium (Ancef) Confirm Administered Dose 1 gm .ROUTE .STK-MED ONE Stop: 02/24/17 12:38 Citalopram Hydrobromide (Celexa) 5 mg PO DAILY [facility] Last Admin: 02/25/17 08:44 Dose: 5 mg Ropivacaine 49.25 ml/Ketorolac Tromethamine 30 mg/Epinephrine HCl 0.5 mg/ Clonidine HCl 80 mcg/ Sodium Chloride 48.45 ml 0 ml INJECT ONETIME ONE Stop: 02/24/17 09:01 Last Admin: 02/24/17 15:48 Dose: Not Given Dexamethasone (Dexamethasone) Confirm Administered Dose 4 mg .ROUTE .STK-MED ONE Stop: 02/24/17 08:04 Dexamethasone (Dexamethasone) 4 mg IVPUSH Q6H [facility] Stop: 02/25/17 10:01 Last Admin: 02/24/17 16:15 Dose: 4 mg Dexamethasone (Dexamethasone) 8 mg IVPUSH Q6H [facility] Stop: 02/25/17 13:45 Last Admin: 02/25/17 01:08 Dose: 8 mg Dexamethasone (Dexamethasone) 8 mg IVPUSH Q6H [facility] Stop: 02/26/17 02:01 Last Admin: 02/26/17 02:38 Dose: 8 mg Ephedrine Sulfate (Ephedrine Sulfate) Confirm Administered Dose 50 mg .ROUTE .STK-MED ONE Stop: 02/24/17 12:57 Fentanyl (Sublimaze) Confirm Administered Dose 500 mcg .ROUTE .STK-MED ONE Stop: 02/24/17 08:04 Fentanyl (Sublimaze) Confirm Administered Dose 250 mcg .ROUTE .STK-MED ONE Stop: 02/24/17 08:15 Glycopyrrolate () Confirm Administered Dose 1 mg .ROUTE .STK-MED ONE Stop: 02/24/17 08:04 Tranexamic Acid 595 mg/ Sodium (Chloride) 55.95 mls @ 223.8 mls/hr IV Q3H [facility] Stop: 02/24/17 12:14 Last Admin: 02/24/17 15:48 Dose: Not Given Ketamine HCl 100 mg/ Sodium (Chloride) 100 mls @ 16.4 mls/hr IV ASDIRECTED [facility] Stop: 02/24/17 12:00 Last Admin: 02/24/17 09:49 Dose: 16.4 mls/hr Lactated Ringer's (Ringers, Lactated) 1,000 mls @ 0 mls/hr IV ASDIRECTED [facility] PRN Reason: KVO Last Admin: 02/24/17 07:10 Dose: 25 mls/hr Cefazolin Sodium/Dextrose 1 gm (/ Premix) 50 mls @ 100 mls/hr IV ONETIME ONE Stop: 02/24/17 08:59 Last Admin: 02/24/17 08:47 Dose: 100 mls/hr Lactated Ringer's (Ringers, Lactated) Confirm Administered Dose 1,000 mls @ as directed .ROUTE .STK-MED ONE Stop: 02/24/17 13:01 Lactated Ringer's (Ringers, Lactated) Confirm Administered Dose 1,000 mls @ as directed .ROUTE .STK-MED ONE Stop: 02/24/17 13:01 Lactated Ringer's (Ringers, Lactated) Confirm Administered Dose 1,000 mls @ as directed .ROUTE .STK-MED ONE Stop: 02/24/17 13:29 Cefazolin Sodium/Dextrose 1 gm (/ Premix) 50 mls @ 100 mls/hr IV Q8H [facility] Stop: 02/25/17 08:29 Last Admin: 02/25/17 08:46 Dose: 100 mls/hr Lactated Ringer's (Ringers, Lactated) 500 mls @ 500 mls/hr IV BOLUS ONE Stop: 02/24/17 18:29 Last Admin: 02/24/17 17:15 Dose: 500 mls/hr Lactated Ringer's (Ringers, Lactated) 1,000 mls @ 75 mls/hr IV ASDIRECTED [facility] Last Admin: 02/25/17 10:46 Dose: 75 mls/hr Ketamine HCl (Ketalar) 27 mg IV ONETIME ONE Stop: 02/24/17 09:01 Last Admin: 02/24/17 15:48 Dose: Not Given Ketorolac Tromethamine (Toradol) 15 mg IVPUSH Q6H [facility] Stop: 02/24/17 22:01 Last Admin: 02/24/17 22:44 Dose: 15 mg Neostigmine Methylsulfate (Neostigmine) Confirm Administered Dose 5 mg .ROUTE .STK-MED ONE Stop: 02/24/17 08:04 Ondansetron HCl (Zofran) Confirm Administered Dose 4 mg .ROUTE .STK-MED ONE Stop: 02/24/17 08:04 Ondansetron HCl (Zofran) Confirm Administered Dose 4 mg .ROUTE .STK-MED ONE Stop: 02/24/17 13:53 Povidone Iodine (Betadine 10% Soln) Confirm Administered Dose 1 ml .ROUTE .STK- MED ONE Stop: 02/24/17 07:17 Last Admin: 02/24/17 07:58 Dose: 30 ml Propofol (Diprivan 20 Ml) Confirm Administered Dose 200 mg .ROUTE .STK-MED ONE Stop: 02/24/17 08:04 Propofol (Diprivan 20 Ml) Confirm Administered Dose 600 mg .ROUTE .STK-MED ONE Stop: 02/24/17 08:07 Propofol (Diprivan 20 Ml) Confirm Administered Dose 400 mg .ROUTE .STK-MED ONE Stop: 02/24/17 11:04 Propofol (Diprivan 20 Ml) Confirm Administered Dose 400 mg .ROUTE .STK-MED ONE Stop: 02/24/17 12:55 Rocuronium [place] (Zemuron) Confirm Administered Dose 50 mg .ROUTE .STK-MED ONE Stop: 02/24/17 08:04 Rocuronium [place] (Zemuron) Confirm Administered Dose 50 mg .ROUTE .STK-MED ONE Stop: 02/24/17 10:04 Sodium Chloride (Normal Saline) 1,000 ml IRR .STK-MED ONE Stop: 02/24/17 09:31 Last Admin: 02/24/17 09:30 Dose: 1,000 ml Succinylcholine Chloride (Succinylcholine In Ns Pf) Confirm Administered Dose 200 mg .ROUTE .STK-MED ONE Stop: 02/24/17 08:04 Thrombin (Thrombin-Jmi) Confirm Administered Dose 10,000 unit .ROUTE .STK-MED ONE Stop: 02/24/17 07:17 Last Admin: 02/24/17 10:48 Dose: 5,000 unit - Exam General: alert, oriented Back Exam: Normal Inspection Extremities: no edema, normal pulses, no tenderness/swelling, no clubbing Neurological: no new focal deficit, cranial nerves intact Psy/Mental Status: alert - My Orders Last 24 Hours: My Active Orders 02/27/17 05:15 BASIC METABOLIC PANEL,BMP [CHEM] DAILY CBC WITH AUTO DIFF [HEME] DAILY 02/28/17 05:15 BASIC METABOLIC PANEL,BMP [CHEM] DAILY CBC WITH AUTO DIFF [HEME] DAILY - Plan Plan:: ASSESSMENT AND PLAN - Lumbar spondylolisthesis and spinal stenosis - status post surgical intervention 02/24. Urine output has improved with one fluid bolus. Pain is well- controlled. She is working with physical therapy. -Pain control -Discontinue IV fluids -Monitor intake and output -Physical therapy in the morning Depression - stable. Luis Gregory M.D.
--- NOTE | 2017-02-26 09:15 | PCM.PN ---
- General Info Date of Service: 02/25/17 Functional Status: Reports: pain controlled, tolerating diet, ambulating - Review of Systems General: Reports: No Symptoms HEENT: Reports: no symptoms Pulmonary: Reports: no symptoms Cardiovascular: Reports: No Symptoms Gastrointestinal: Reports: No symptoms Genitourinary: Reports: no symptoms Musculoskeletal: Reports: back pain Skin: Reports: no symptoms Neurological: Reports: Difficulty Walking, Weakness, Gait Disturbance - Patient Data Vitals - most recent: Last Vital Signs Temp 98.8 F 02/26/17 07:08 Pulse 75 02/26/17 07:08 Resp 16 02/26/17 07:08 BP 113/68 02/26/17 07:08 Pulse Ox 96 02/26/17 07:08 Weight - most recent: 126 lb I&O - last 24 hours: Intake & Output 02/25/17 02/26/17 02/26/17 22:59 06:59 14:59 Intake Total 800 Balance 800 Lab Results last 24 hrs: Laboratory Results - last 24 hr 02/26/17 02/26/17 Range/Units 04:45 04:45 WBC 12.6 H (4.5-11.0) K/uL RBC 3.18 L (3.30-5.50) M/uL Hgb 9.6 L (12.0-15.0) g/dL Hct 30.2 L (36.0-48.0) % MCV 95 (80-98) fL MCH 30 (27-31) pg MCHC 32 (32-36) % Plt Count 123 L (150-400) K/uL Neut % (Auto) 89 H (36-66) % Lymph % (Auto) 5 L (24-44) % [place] % (Auto) 6 (2-6) % Eos % (Auto) 0 L (2-4) % Baso % (Auto) 0 (0-1) % Sodium 144 (140-148) mmol/L Potassium 4.8 (3.6-5.2) mmol/L Chloride 111 H (100-108) mmol/L Carbon Dioxide 28 (21-32) mmol/L Anion Gap 9.8 (5.0-14.0) mmol/L BUN 27 H (7-18) mg/dL Creatinine 1.0 (0.6-1.0) mg/dL Est Cr Clr Drug Dosing 41.97 mL/min Estimated GFR (MDRD) 54 L (>60) Glucose 135 H (74-106) mg/dL Calcium 8.2 L (8.5-10.1) mg/dL Med Orders - Current: Current Medications Al Hydroxide/Mg Hydroxide (Mag-Al Plus) 30 ml PO Q4H PRN PRN Reason: Indigestion Alprazolam (Xanax) 0.125 mg PO TID [facility] Last Admin: 02/25/17 20:35 Dose: 0.125 mg Citalopram Hydrobromide (Celexa) 5 mg PO BEDTIME [facility] Diazepam (Valium) 5 mg IVPUSH Q6H PRN PRN Reason: Spasms Hydromorphone HCl (Dilaudid) 1 mg IVPUSH Q2H PRN PRN Reason: Pain Last Admin: 02/24/17 16:10 Dose: 1 mg Magnesium Hydroxide (Milk Of Magnesia) 30 ml PO BID PRN PRN Reason: Constipation Last Admin: 02/25/17 16:15 Dose: 30 ml Mirtazapine (Remeron) 22.5 mg PO BEDTIME [facility] Last Admin: 02/25/17 20:26 Dose: 22.5 mg Naloxone HCl (Narcan) 0.2 mg IVPUSH ONETIME PRN PRN Reason: Oversedation Ondansetron HCl (Zofran) 8 mg IVPUSH Q4H PRN PRN Reason: Nausea/Vomiting Oxycodone/Acetaminophen (Percocet 325-5 Mg) 2 tab PO Q4H PRN PRN Reason: Pain Scopolamine (Transderm-Scop) 1.5 mg TRDERM Q72H [facility] Stop: 02/27/17 05:00 Last Admin: 02/24/17 07:38 Dose: 1.5 mg Senna (Senna) 8.6 mg PO BID PRN PRN Reason: Constipation Last Admin: 02/25/17 16:15 Dose: 8.6 mg Sodium Chloride (Saline Flush) 10 ml FLUSH ASDIRECTED PRN PRN Reason: Keep Vein Open Zolpidem Tartrate (Ambien) 5 mg PO BEDTIME PRN PRN Reason: Sleep Discontinued Medications Cefazolin Sodium (Ancef) Confirm Administered Dose 1 gm .ROUTE .STK-MED ONE Stop: 02/24/17 12:38 Citalopram Hydrobromide (Celexa) 5 mg PO DAILY [facility] Last Admin: 02/25/17 08:44 Dose: 5 mg Ropivacaine 49.25 ml/Ketorolac Tromethamine 30 mg/Epinephrine HCl 0.5 mg/ Clonidine HCl 80 mcg/ Sodium Chloride 48.45 ml 0 ml INJECT ONETIME ONE Stop: 02/24/17 09:01 Last Admin: 02/24/17 15:48 Dose: Not Given Dexamethasone (Dexamethasone) Confirm Administered Dose 4 mg .ROUTE .STK-MED ONE Stop: 02/24/17 08:04 Dexamethasone (Dexamethasone) 4 mg IVPUSH Q6H [facility] Stop: 02/25/17 10:01 Last Admin: 02/24/17 16:15 Dose: 4 mg Dexamethasone (Dexamethasone) 8 mg IVPUSH Q6H [facility] Stop: 02/25/17 13:45 Last Admin: 02/25/17 01:08 Dose: 8 mg Dexamethasone (Dexamethasone) 8 mg IVPUSH Q6H [facility] Stop: 02/26/17 02:01 Last Admin: 02/26/17 02:38 Dose: 8 mg Ephedrine Sulfate (Ephedrine Sulfate) Confirm Administered Dose 50 mg .ROUTE .STK-MED ONE Stop: 02/24/17 12:57 Fentanyl (Sublimaze) Confirm Administered Dose 500 mcg .ROUTE .STK-MED ONE Stop: 02/24/17 08:04 Fentanyl (Sublimaze) Confirm Administered Dose 250 mcg .ROUTE .STK-MED ONE Stop: 02/24/17 08:15 Glycopyrrolate () Confirm Administered Dose 1 mg .ROUTE .STK-MED ONE Stop: 02/24/17 08:04 Tranexamic Acid 595 mg/ Sodium (Chloride) 55.95 mls @ 223.8 mls/hr IV Q3H [facility] Stop: 02/24/17 12:14 Last Admin: 02/24/17 15:48 Dose: Not Given Ketamine HCl 100 mg/ Sodium (Chloride) 100 mls @ 16.4 mls/hr IV ASDIRECTED [facility] Stop: 02/24/17 12:00 Last Admin: 02/24/17 09:49 Dose: 16.4 mls/hr Lactated Ringer's (Ringers, Lactated) 1,000 mls @ 0 mls/hr IV ASDIRECTED [facility] PRN Reason: KVO Last Admin: 02/24/17 07:10 Dose: 25 mls/hr Cefazolin Sodium/Dextrose 1 gm (/ Premix) 50 mls @ 100 mls/hr IV ONETIME ONE Stop: 02/24/17 08:59 Last Admin: 02/24/17 08:47 Dose: 100 mls/hr Lactated Ringer's (Ringers, Lactated) Confirm Administered Dose 1,000 mls @ as directed .ROUTE .STK-MED ONE Stop: 02/24/17 13:01 Lactated Ringer's (Ringers, Lactated) Confirm Administered Dose 1,000 mls @ as directed .ROUTE .STK-MED ONE Stop: 02/24/17 13:01 Lactated Ringer's (Ringers, Lactated) Confirm Administered Dose 1,000 mls @ as directed .ROUTE .STK-MED ONE Stop: 02/24/17 13:29 Cefazolin Sodium/Dextrose 1 gm (/ Premix) 50 mls @ 100 mls/hr IV Q8H [facility] Stop: 02/25/17 08:29 Last Admin: 02/25/17 08:46 Dose: 100 mls/hr Lactated Ringer's (Ringers, Lactated) 500 mls @ 500 mls/hr IV BOLUS ONE Stop: 02/24/17 18:29 Last Admin: 02/24/17 17:15 Dose: 500 mls/hr Lactated Ringer's (Ringers, Lactated) 1,000 mls @ 75 mls/hr IV ASDIRECTED [facility] Last Admin: 02/25/17 10:46 Dose: 75 mls/hr Ketamine HCl (Ketalar) 27 mg IV ONETIME ONE Stop: 02/24/17 09:01 Last Admin: 02/24/17 15:48 Dose: Not Given Ketorolac Tromethamine (Toradol) 15 mg IVPUSH Q6H [facility] Stop: 02/24/17 22:01 Last Admin: 02/24/17 22:44 Dose: 15 mg Neostigmine Methylsulfate (Neostigmine) Confirm Administered Dose 5 mg .ROUTE .STK-MED ONE Stop: 02/24/17 08:04 Ondansetron HCl (Zofran) Confirm Administered Dose 4 mg .ROUTE .STK-MED ONE Stop: 02/24/17 08:04 Ondansetron HCl (Zofran) Confirm Administered Dose 4 mg .ROUTE .STK-MED ONE Stop: 02/24/17 13:53 Povidone Iodine (Betadine 10% Soln) Confirm Administered Dose 1 ml .ROUTE .STK- MED ONE Stop: 02/24/17 07:17 Last Admin: 02/24/17 07:58 Dose: 30 ml Propofol (Diprivan 20 Ml) Confirm Administered Dose 200 mg .ROUTE .STK-MED ONE Stop: 02/24/17 08:04 Propofol (Diprivan 20 Ml) Confirm Administered Dose 600 mg .ROUTE .STK-MED ONE Stop: 02/24/17 08:07 Propofol (Diprivan 20 Ml) Confirm Administered Dose 400 mg .ROUTE .STK-MED ONE Stop: 02/24/17 11:04 Propofol (Diprivan 20 Ml) Confirm Administered Dose 400 mg .ROUTE .STK-MED ONE Stop: 02/24/17 12:55 Rocuronium [place] (Zemuron) Confirm Administered Dose 50 mg .ROUTE .STK-MED ONE Stop: 02/24/17 08:04 Rocuronium [place] (Zemuron) Confirm Administered Dose 50 mg .ROUTE .STK-MED ONE Stop: 02/24/17 10:04 Sodium Chloride (Normal Saline) 1,000 ml IRR .STK-MED ONE Stop: 02/24/17 09:31 Last Admin: 02/24/17 09:30 Dose: 1,000 ml Succinylcholine Chloride (Succinylcholine In Ns Pf) Confirm Administered Dose 200 mg .ROUTE .STK-MED ONE Stop: 02/24/17 08:04 Thrombin (Thrombin-Jmi) Confirm Administered Dose 10,000 unit .ROUTE .STK-MED ONE Stop: 02/24/17 07:17 Last Admin: 02/24/17 10:48 Dose: 5,000 unit - Exam General: alert, oriented HEENT: Pupils equal, Pupils reactive Neck: supple Peripheral Pulses: 2+: Dorsalis Pedis (L), Dorsalis Pedis (R) Skin: warm, intact, moist Wound/Incisions: healing well, drainage Neurological: other Psy/Mental Status: alert, normal affect, normal mood - Problem List & Annotations (1) Status post lumbar spinal fusion SNOMED Code(s): 595166781, 681920519, 507773222 Code(s): Z98.1 - ARTHRODESIS STATUS Status: Acute Current Visit: Yes Annotation/Comment:: L 4 - S 1 (2) Spinal stenosis of lumbar region SNOMED Code(s): 21944906 Code(s): M48.06 - SPINAL STENOSIS, LUMBAR REGION Status: Chronic Current Visit: No - Problem List Review Problem List Initiated/Reviewed/Updated: Yes - My Orders Last 24 Hours: My Active Orders 02/25/17 13:33 Convert IV to Saline Lock [OM.PC] Routine - Plan Plan:: ASSESSMENT AND PLAN - L4-5 and L5-S1 posterior lumbar interbody fusion. The patient was seen first thing in the morning. She did have weakness consistent with foot drop on the left. I explained to the patient that her nerve was extremely thinned out on that side. Preoperatively she had right lower extremity radiculopathy which has since resolved. She did have some drainage this morning. I replaced the dressing myself. She did have serosanguineous fluid which was appropriate. The incision did not have any erythema and was clean. The patient related 35 feet in the morning and then walked for hallways in the afternoon. She was saline locked midday. AP and lateral views of lumbar spine which were standing were taken today. The L5-S1 spondylolisthesis of been completely reduced. The L4-5 spondylolisthesis was unchanged as was expected. It does look to be increased on x-ray with this is secondary to the reduction of the L5 vertebral body. She did have increased bowel noted on AP exam. Nursing will work on bowel prep today. It was discussed with the patient about going to a group home facility. I did suggest that we reach out to acute rehabilitation in [place]. We will see how the patient does tomorrow. We have contacted a supplier for an ankle-foot orthosis which we'll expect to apply to the patient's left ankle.
[2017-02-26] MEDS: ALPRAZolam 0.25 MG Tab PO SCH ×2 (09:29→13:54)
--- NOTE | 2017-02-26 12:38 | PCM.OC ---
Ortho Clinic - Subjective - Subjective Date of Service: 02/26/17 Pain Assessment: Follow-Up Assessment Vital Signs: Last Vital Signs Temp 36.9 C 02/26/17 10:29 Pulse 78 02/26/17 10:29 Resp 16 02/26/17 10:29 BP 115/59 L 02/26/17 10:29 Pulse Ox 98 02/26/17 10:29 Home Medications: Home Meds ALPRAZolam [Xanax] 0.5 tab PO TID 02/17/17 [History] Cholecalciferol (Vitamin D3) [Vitamin D3] 1 tab PO DAILY 02/17/17 [History] Citalopram [Celexa] 5 mg PO DAILY 02/17/17 [History] Glucosamine Sulfate 2KCl [Glucosamine Sulfate] 1 tab PO DAILY 02/17/17 [History] Mirtazapine [Remeron] 22.5 mg PO BEDTIME 02/17/17 [History] Multivitamin [Multivitamins] 1 tab PO DAILY 02/17/17 [History] Acetaminophen [Pain Reliever] 500 mg PO Q4H PRN 02/19/17 [History] Ortho Clinic - Objective - Objective Height: 1.63 m Weight: 126 lb Ortho Clinic - Past Med Histry HEENT History: Reports: Cataract, Impaired Vision Cardiovascular History: Reports: High Cholesterol Gastrointestinal History: Reports: None Genitourinary History: Reports: None CUTTER HAND History: Reports: Musculoskeletal History: Reports: Arthritis, Back Pain, Chronic, Fracture Neurological History: Reports: None Psychiatric History: Reports: Anxiety, Depression - Infectious Disease History Infectious Disease History: Reports: Mumps - Past Surgical History HEENT Surgical History: Reports: Cataract Surgery Cardiovascular Surgical History: Reports: None GI Surgical History: Reports: None, Colonoscopy Female Surgical History: Reports: D&C Neurological Surgical History: Reports: None Musculoskeletal Surgical History: Reports: None Ortho Clinic - AP - Problems List (1) Status post lumbar spinal fusion SNOMED Code(s): 082327333, 393618490, [id number] ICD Code: Z98.1 - ARTHRODESIS STATUS Status: Acute Current Visit: Yes Problem Details: L 4 - S 1 - Plan Plan: Sindhu is a pleasant 26-year-old female who is status post op day 2 of lumbar fusion of L4 through S1. she is doing better today. She states that she has minimal pain at this time. She has not been taking anything for oral pain medication. She continues work with physical therapy and is doing well. Patient does note that she continues to still have weakness on the left foot. She does not have any pain on the right side at this time. physical examination: Physical examination of the lower extremities notes that there is weakness in her left lower extremity. Both with flexion and extension. She does have full strength in the right lower extremity. dorsal pedis pulses are equal bilaterally. Upper extremities no equal strength at this time. Incision appears to be clean dry and intact. No secondary signs of infection noted. No drainage. Dressing is replaced. plan: At this time we are waiting for a foot brace for that left foot. We will have that placed him up with physical therapy for discharge. Patient has chosen to go to a short-term nursing skilled facility which we are waiting upon confirmation. Patient family are in agreement with this plan and will check back with her in the morning.
[2017-02-26] MEDS: ALPRAZolam 0.25 MG Tab PO PRN (15:58)
--- NOTE | 2017-02-26 18:04 | PCM.PN ---
- General Info Date of Service: 02/26/17 Functional Status: Reports: pain controlled, tolerating diet, ambulating - Review of Systems General: Denies: Fever Systems Review Comment:: No acute events overnight. Back pain has been well controlled. Numbness and weakness of the left leg are stable compared to yesterday. No behavior issues. No fevers. - Patient Data Vitals - most recent: Last Vital Signs Temp 37.1 C 02/26/17 15:50 Pulse 75 02/26/17 15:50 Resp 16 02/26/17 15:50 BP 110/61 02/26/17 15:50 Pulse Ox 99 02/26/17 15:50 Weight - most recent: 57.153 kg I&O - last 24 hours: Intake & Output 02/26/17 02/26/17 02/26/17 06:59 14:59 22:59 Intake Total 800 1240 Balance 800 1240 Lab Results last 24 hrs: Laboratory Results - last 24 hr 02/26/17 02/26/17 Range/Units 04:45 04:45 WBC 12.6 H (4.5-11.0) K/uL RBC 3.18 L (3.30-5.50) M/uL Hgb 9.6 L (12.0-15.0) g/dL Hct 30.2 L (36.0-48.0) % MCV 95 (80-98) fL MCH 30 (27-31) pg MCHC 32 (32-36) % Plt Count 123 L (150-400) K/uL Neut % (Auto) 89 H (36-66) % Lymph % (Auto) 5 L (24-44) % [place] % (Auto) 6 (2-6) % Eos % (Auto) 0 L (2-4) % Baso % (Auto) 0 (0-1) % Sodium 144 (140-148) mmol/L Potassium 4.8 (3.6-5.2) mmol/L Chloride 111 H (100-108) mmol/L Carbon Dioxide 28 (21-32) mmol/L Anion Gap 9.8 (5.0-14.0) mmol/L BUN 27 H (7-18) mg/dL Creatinine 1.0 (0.6-1.0) mg/dL Est Cr Clr Drug Dosing 41.97 mL/min Estimated GFR (MDRD) 54 L (>60) Glucose 135 H (74-106) mg/dL Calcium 8.2 L (8.5-10.1) mg/dL Med Orders - Current: Current Medications Acetaminophen (Tylenol Extra Strength) 1,000 mg PO Q6H PRN PRN Reason: Pain Al Hydroxide/Mg Hydroxide (Mag-Al Plus) 30 ml PO Q4H PRN PRN Reason: Indigestion Alprazolam (Xanax) 0.125 mg PO TID PRN PRN Reason: Anxiety Last Admin: 02/26/17 15:58 Dose: 0.125 mg Citalopram Hydrobromide (Celexa) 5 mg PO BEDTIME [facility] Diazepam (Valium) 5 mg IVPUSH Q6H PRN PRN Reason: Spasms Hydromorphone HCl (Dilaudid) 1 mg IVPUSH Q2H PRN PRN Reason: Pain Last Admin: 02/24/17 16:10 Dose: 1 mg Magnesium Hydroxide (Milk Of Magnesia) 30 ml PO BID PRN PRN Reason: Constipation Last Admin: 02/25/17 16:15 Dose: 30 ml Mirtazapine (Remeron) 22.5 mg PO BEDTIME [facility] Last Admin: 02/25/17 20:26 Dose: 22.5 mg Naloxone HCl (Narcan) 0.2 mg IVPUSH ONETIME PRN PRN Reason: Oversedation Ondansetron HCl (Zofran) 8 mg IVPUSH Q4H PRN PRN Reason: Nausea/Vomiting Oxycodone/Acetaminophen (Percocet 325-5 Mg) 2 tab PO Q4H PRN PRN Reason: Pain Scopolamine (Transderm-Scop) 1.5 mg TRDERM Q72H [facility] Stop: 02/27/17 05:00 Last Admin: 02/24/17 07:38 Dose: 1.5 mg Senna (Senna) 8.6 mg PO BID PRN PRN Reason: Constipation Last Admin: 02/25/17 16:15 Dose: 8.6 mg Sodium Chloride (Saline Flush) 10 ml FLUSH ASDIRECTED PRN PRN Reason: Keep Vein Open Tramadol HCl (Ultram) 50 mg PO Q6H PRN PRN Reason: Pain Zolpidem Tartrate (Ambien) 5 mg PO BEDTIME PRN PRN Reason: Sleep Discontinued Medications Alprazolam (Xanax) 0.125 mg PO TID [facility] Last Admin: 02/26/17 13:54 Dose: Not Given Cefazolin Sodium (Ancef) Confirm Administered Dose 1 gm .ROUTE .STK-MED ONE Stop: 02/24/17 12:38 Citalopram Hydrobromide (Celexa) 5 mg PO DAILY [facility] Last Admin: 02/25/17 08:44 Dose: 5 mg Ropivacaine 49.25 ml/Ketorolac Tromethamine 30 mg/Epinephrine HCl 0.5 mg/ Clonidine HCl 80 mcg/ Sodium Chloride 48.45 ml 0 ml INJECT ONETIME ONE Stop: 02/24/17 09:01 Last Admin: 02/24/17 15:48 Dose: Not Given Dexamethasone (Dexamethasone) Confirm Administered Dose 4 mg .ROUTE .STK-MED ONE Stop: 02/24/17 08:04 Dexamethasone (Dexamethasone) 4 mg IVPUSH Q6H [facility] Stop: 02/25/17 10:01 Last Admin: 02/24/17 16:15 Dose: 4 mg Dexamethasone (Dexamethasone) 8 mg IVPUSH Q6H [facility] Stop: 02/25/17 13:45 Last Admin: 02/25/17 01:08 Dose: 8 mg Dexamethasone (Dexamethasone) 8 mg IVPUSH Q6H [facility] Stop: 02/26/17 02:01 Last Admin: 02/26/17 02:38 Dose: 8 mg Ephedrine Sulfate (Ephedrine Sulfate) Confirm Administered Dose 50 mg .ROUTE .STK-MED ONE Stop: 02/24/17 12:57 Fentanyl (Sublimaze) Confirm Administered Dose 500 mcg .ROUTE .STK-MED ONE Stop: 02/24/17 08:04 Fentanyl (Sublimaze) Confirm Administered Dose 250 mcg .ROUTE .STK-MED ONE Stop: 02/24/17 08:15 Glycopyrrolate () Confirm Administered Dose 1 mg .ROUTE .STK-MED ONE Stop: 02/24/17 08:04 Tranexamic Acid 595 mg/ Sodium (Chloride) 55.95 mls @ 223.8 mls/hr IV Q3H [facility] Stop: 02/24/17 12:14 Last Admin: 02/24/17 15:48 Dose: Not Given Ketamine HCl 100 mg/ Sodium (Chloride) 100 mls @ 16.4 mls/hr IV ASDIRECTED [facility] Stop: 02/24/17 12:00 Last Admin: 02/24/17 09:49 Dose: 16.4 mls/hr Lactated Ringer's (Ringers, Lactated) 1,000 mls @ 0 mls/hr IV ASDIRECTED [facility] PRN Reason: KVO Last Admin: 02/24/17 07:10 Dose: 25 mls/hr Cefazolin Sodium/Dextrose 1 gm (/ Premix) 50 mls @ 100 mls/hr IV ONETIME ONE Stop: 02/24/17 08:59 Last Admin: 02/24/17 08:47 Dose: 100 mls/hr Lactated Ringer's (Ringers, Lactated) Confirm Administered Dose 1,000 mls @ as directed .ROUTE .STK-MED ONE Stop: 02/24/17 13:01 Lactated Ringer's (Ringers, Lactated) Confirm Administered Dose 1,000 mls @ as directed .ROUTE .STK-MED ONE Stop: 02/24/17 13:01 Lactated Ringer's (Ringers, Lactated) Confirm Administered Dose 1,000 mls @ as directed .ROUTE .STK-MED ONE Stop: 02/24/17 13:29 Cefazolin Sodium/Dextrose 1 gm (/ Premix) 50 mls @ 100 mls/hr IV Q8H [facility] Stop: 02/25/17 08:29 Last Admin: 02/25/17 08:46 Dose: 100 mls/hr Lactated Ringer's (Ringers, Lactated) 500 mls @ 500 mls/hr IV BOLUS ONE Stop: 02/24/17 18:29 Last Admin: 02/24/17 17:15 Dose: 500 mls/hr Lactated Ringer's (Ringers, Lactated) 1,000 mls @ 75 mls/hr IV ASDIRECTED [facility] Last Admin: 02/25/17 10:46 Dose: 75 mls/hr Ketamine HCl (Ketalar) 27 mg IV ONETIME ONE Stop: 02/24/17 09:01 Last Admin: 02/24/17 15:48 Dose: Not Given Ketorolac Tromethamine (Toradol) 15 mg IVPUSH Q6H [facility] Stop: 02/24/17 22:01 Last Admin: 02/24/17 22:44 Dose: 15 mg Neostigmine Methylsulfate (Neostigmine) Confirm Administered Dose 5 mg .ROUTE .STK-MED ONE Stop: 02/24/17 08:04 Ondansetron HCl (Zofran) Confirm Administered Dose 4 mg .ROUTE .STK-MED ONE Stop: 02/24/17 08:04 Ondansetron HCl (Zofran) Confirm Administered Dose 4 mg .ROUTE .STK-MED ONE Stop: 02/24/17 13:53 Povidone Iodine (Betadine 10% Soln) Confirm Administered Dose 1 ml .ROUTE .STK- MED ONE Stop: 02/24/17 07:17 Last Admin: 02/24/17 07:58 Dose: 30 ml Propofol (Diprivan 20 Ml) Confirm Administered Dose 200 mg .ROUTE .STK-MED ONE Stop: 02/24/17 08:04 Propofol (Diprivan 20 Ml) Confirm Administered Dose 600 mg .ROUTE .STK-MED ONE Stop: 02/24/17 08:07 Propofol (Diprivan 20 Ml) Confirm Administered Dose 400 mg .ROUTE .STK-MED ONE Stop: 02/24/17 11:04 Propofol (Diprivan 20 Ml) Confirm Administered Dose 400 mg .ROUTE .STK-MED ONE Stop: 02/24/17 12:55 Rocuronium [place] (Zemuron) Confirm Administered Dose 50 mg .ROUTE .STK-MED ONE Stop: 02/24/17 08:04 Rocuronium [place] (Zemuron) Confirm Administered Dose 50 mg .ROUTE .ST-MED ONE Stop: 02/24/17 10:04 Sodium Chloride (Normal Saline) 1,000 ml IRR .STK-MED ONE Stop: 02/24/17 09:31 Last Admin: 02/24/17 09:30 Dose: 1,000 ml Succinylcholine Chloride (Succinylcholine In Ns Pf) Confirm Administered Dose 200 mg .ROUTE .STK-MED ONE Stop: 02/24/17 08:04 Thrombin (Thrombin-Jmi) Confirm Administered Dose 10,000 unit .ROUTE .STK-MED ONE Stop: 02/24/17 07:17 Last Admin: 02/24/17 10:48 Dose: 5,000 unit - Exam Quality Assessment: No: supplemental oxygen General: alert, oriented, cooperative, no acute distress Neck: supple Lungs: Normal respiratory effort Abdomen: soft, no distension Extremities: no edema Skin: warm, dry Psy/Mental Status: alert, normal affect - Problem List & Annotations (1) Spondylolisthesis, lumbar region SNOMED Code(s): 752707650731736 Code(s): M43.16 - SPONDYLOLISTHESIS, LUMBAR REGION Status: Chronic Current Visit: No (2) Spinal stenosis of lumbar region SNOMED Code(s): 90080787 Code(s): M48.06 - SPINAL STENOSIS, LUMBAR REGION Status: Chronic Current Visit: No - Problem List Review Problem List Initiated/Reviewed/Updated: Yes - My Orders Last 24 Hours: My Active Orders 02/26/17 15:14 ALPRAZolam [Xanax] 0.125 mg PO TID PRN 02/26/17 21:00 Citalopram [Celexa] 5 mg PO BEDTIME - Plan Plan:: ASSESSMENT AND PLAN - Lumbar spondylolisthesis and spinal stenosis - status post surgical intervention 02/24. Pain is well-controlled. She is working with physical therapy. -Pain control -Discontinue IV fluids -Monitor intake and output -Physical therapy in the morning Depression - stable. Luis Gregory M.D.
[2017-02-26] MEDS: Acetaminophen 500 MG Tab PO PRN (18:32)
[2017-02-26] MEDS: traMADol 50 MG Tab PO PRN (20:44)
[2017-02-26] MEDS: Mirtazapine 15 MG Tab PO SCH (20:45)
[2017-02-26] MEDS ORDERED: Citalopram 10 MG Tab PO SCH (21:00)
[2017-02-27] MEDS: traMADol 50 MG Tab PO PRN (04:31)
[2017-02-27] MEDS: ALPRAZolam 0.25 MG Tab PO PRN ×2 (04:32→09:13)
[2017-02-27] MEDS: Acetaminophen 500 MG Tab PO PRN (09:57)
[2017-02-27 11:21] VITALS: BP 108/56
--- NOTE | 2017-02-27 11:22 | PCM.PN ---
- General Info Date of Service: 02/27/17 Functional Status: Reports: pain controlled, ambulating, urinating - Review of Systems General: Reports: No Symptoms HEENT: Reports: no symptoms Pulmonary: Reports: no symptoms Cardiovascular: Reports: No Symptoms Gastrointestinal: Reports: No symptoms Genitourinary: Reports: no symptoms Musculoskeletal: Reports: back pain, leg pain Skin: Reports: no symptoms Neurological: Reports: Paresthesia, Tingling, Difficulty Walking, Weakness, Gait Disturbance Psychiatric: Reports: anxiety - Patient Data Vitals - most recent: Last Vital Signs Temp 98.3 F 02/27/17 06:54 Pulse 76 02/27/17 06:54 Resp 16 02/27/17 06:54 BP 112/64 02/27/17 06:54 Pulse Ox 98 02/27/17 06:54 Weight - most recent: 126 lb I&O - last 24 hours: Intake & Output 02/26/17 02/27/17 02/27/17 22:59 06:59 14:59 Intake Total 240 360 Balance 240 360 Lab Results last 24 hrs: Laboratory Results - last 24 hr 02/27/17 02/27/17 Range/Units 05:40 05:40 WBC 8.9 (4.5-11.0) K/uL RBC 3.14 L (3.30-5.50) M/uL Hgb 9.4 L (12.0-15.0) g/dL Hct 30.2 L (36.0-48.0) % MCV 96 (80-98) fL MCH 30 (27-31) pg MCHC 31 L (32-36) % Plt Count 116 L (150-400) K/uL Neut % (Auto) 63 (36-66) % Lymph % (Auto) 25 (24-44) % [place] % (Auto) 11 H (2-6) % Eos % (Auto) 1 L (2-4) % Baso % (Auto) 0 (0-1) % Sodium 144 (140-148) mmol/L Potassium 4.1 (3.6-5.2) mmol/L Chloride 111 H (100-108) mmol/L Carbon Dioxide 30 (21-32) mmol/L Anion Gap 7.1 (5.0-14.0) mmol/L BUN 27 H (7-18) mg/dL Creatinine 1.1 H (0.6-1.0) mg/dL Est Cr Clr Drug Dosing 38.16 mL/min Estimated GFR (MDRD) 48 L (>60) Glucose 97 (74-106) mg/dL Calcium 8.0 L (8.5-10.1) mg/dL Med Orders - Current: Current Medications Acetaminophen (Tylenol Extra Strength) 1,000 mg PO Q6H PRN PRN Reason: Pain Last Admin: 02/27/17 09:57 Dose: 1,000 mg Al Hydroxide/Mg Hydroxide (Mag-Al Plus) 30 ml PO Q4H PRN PRN Reason: Indigestion Alprazolam (Xanax) 0.125 mg PO TID PRN PRN Reason: Anxiety Last Admin: 02/27/17 09:13 Dose: 0.125 mg Citalopram Hydrobromide (Celexa) 5 mg PO BEDTIME FIDELIA Last Admin: 02/26/17 20:44 Dose: 5 mg Diazepam (Valium) 5 mg IVPUSH Q6H PRN PRN Reason: Spasms Hydromorphone HCl (Dilaudid) 1 mg IVPUSH Q2H PRN PRN Reason: Pain Last Admin: 02/24/17 16:10 Dose: 1 mg Magnesium Hydroxide (Milk Of Magnesia) 30 ml PO BID PRN PRN Reason: Constipation Last Admin: 02/25/17 16:15 Dose: 30 ml Mirtazapine (Remeron) 22.5 mg PO BEDTIME FIDELIA Last Admin: 02/26/17 20:45 Dose: 22.5 mg Naloxone HCl (Narcan) 0.2 mg IVPUSH ONETIME PRN PRN Reason: Oversedation Ondansetron HCl (Zofran) 8 mg IVPUSH Q4H PRN PRN Reason: Nausea/Vomiting Oxycodone/Acetaminophen (Percocet 325-5 Mg) 2 tab PO Q4H PRN PRN Reason: Pain Senna (Senna) 8.6 mg PO BID PRN PRN Reason: Constipation Last Admin: 02/25/17 16:15 Dose: 8.6 mg Sodium Chloride (Saline Flush) 10 ml FLUSH ASDIRECTED PRN PRN Reason: Keep Vein Open Tramadol HCl (Ultram) 50 mg PO Q6H PRN PRN Reason: Pain Last Admin: 02/27/17 04:31 Dose: 50 mg Zolpidem Tartrate (Ambien) 5 mg PO BEDTIME PRN PRN Reason: Sleep Discontinued Medications Alprazolam (Xanax) 0.125 mg PO TID [facility] Last Admin: 02/26/17 13:54 Dose: Not Given Cefazolin Sodium (Ancef) Confirm Administered Dose 1 gm .ROUTE .STK-MED ONE Stop: 02/24/17 12:38 Citalopram Hydrobromide (Celexa) 5 mg PO DAILY [facility] Last Admin: 02/25/17 08:44 Dose: 5 mg Ropivacaine 49.25 ml/Ketorolac Tromethamine 30 mg/Epinephrine HCl 0.5 mg/ Clonidine HCl 80 mcg/ Sodium Chloride 48.45 ml 0 ml INJECT ONETIME ONE Stop: 02/24/17 09:01 Last Admin: 02/24/17 15:48 Dose: Not Given Dexamethasone (Dexamethasone) Confirm Administered Dose 4 mg .ROUTE .STK-MED ONE Stop: 02/24/17 08:04 Dexamethasone (Dexamethasone) 4 mg IVPUSH Q6H [facility] Stop: 02/25/17 10:01 Last Admin: 02/24/17 16:15 Dose: 4 mg Dexamethasone (Dexamethasone) 8 mg IVPUSH Q6H [facility] Stop: 02/25/17 13:45 Last Admin: 02/25/17 01:08 Dose: 8 mg Dexamethasone (Dexamethasone) 8 mg IVPUSH Q6H [facility] Stop: 02/26/17 02:01 Last Admin: 02/26/17 02:38 Dose: 8 mg Ephedrine Sulfate (Ephedrine Sulfate) Confirm Administered Dose 50 mg .ROUTE .STK-MED ONE Stop: 02/24/17 12:57 Fentanyl (Sublimaze) Confirm Administered Dose 500 mcg .ROUTE .STK-MED ONE Stop: 02/24/17 08:04 Fentanyl (Sublimaze) Confirm Administered Dose 250 mcg .ROUTE .STK-MED ONE Stop: 02/24/17 08:15 Glycopyrrolate () Confirm Administered Dose 1 mg .ROUTE .STK-MED ONE Stop: 02/24/17 08:04 Tranexamic Acid 595 mg/ Sodium (Chloride) 55.95 mls @ 223.8 mls/hr IV Q3H [facility] Stop: 02/24/17 12:14 Last Admin: 02/24/17 15:48 Dose: Not Given Ketamine HCl 100 mg/ Sodium (Chloride) 100 mls @ 16.4 mls/hr IV ASDIRECTED [facility] Stop: 02/24/17 12:00 Last Admin: 02/24/17 09:49 Dose: 16.4 mls/hr Lactated Ringer's (Ringers, Lactated) 1,000 mls @ 0 mls/hr IV ASDIRECTED [facility] PRN Reason: KVO Last Admin: 02/24/17 07:10 Dose: 25 mls/hr Cefazolin Sodium/Dextrose 1 gm (/ Premix) 50 mls @ 100 mls/hr IV ONETIME ONE Stop: 02/24/17 08:59 Last Admin: 02/24/17 08:47 Dose: 100 mls/hr Lactated Ringer's (Ringers, Lactated) Confirm Administered Dose 1,000 mls @ as directed .ROUTE .STK-MED ONE Stop: 02/24/17 13:01 Lactated Ringer's (Ringers, Lactated) Confirm Administered Dose 1,000 mls @ as directed .ROUTE .STK-MED ONE Stop: 02/24/17 13:01 Lactated Ringer's (Ringers, Lactated) Confirm Administered Dose 1,000 mls @ as directed .ROUTE .STK-MED ONE Stop: 02/24/17 13:29 Cefazolin Sodium/Dextrose 1 gm (/ Premix) 50 mls @ 100 mls/hr IV Q8H [facility] Stop: 02/25/17 08:29 Last Admin: 02/25/17 08:46 Dose: 100 mls/hr Lactated Ringer's (Ringers, Lactated) 500 mls @ 500 mls/hr IV BOLUS ONE Stop: 02/24/17 18:29 Last Admin: 02/24/17 17:15 Dose: 500 mls/hr Lactated Ringer's (Ringers, Lactated) 1,000 mls @ 75 mls/hr IV ASDIRECTED [facility] Last Admin: 02/25/17 10:46 Dose: 75 mls/hr Ketamine HCl (Ketalar) 27 mg IV ONETIME ONE Stop: 02/24/17 09:01 Last Admin: 02/24/17 15:48 Dose: Not Given Ketorolac Tromethamine (Toradol) 15 mg IVPUSH Q6H [facility] Stop: 02/24/17 22:01 Last Admin: 02/24/17 22:44 Dose: 15 mg Neostigmine Methylsulfate (Neostigmine) Confirm Administered Dose 5 mg .ROUTE .STK-MED ONE Stop: 02/24/17 08:04 Ondansetron HCl (Zofran) Confirm Administered Dose 4 mg .ROUTE .STK-MED ONE Stop: 02/24/17 08:04 Ondansetron HCl (Zofran) Confirm Administered Dose 4 mg .ROUTE .STK-MED ONE Stop: 02/24/17 13:53 Povidone Iodine (Betadine 10% Soln) Confirm Administered Dose 1 ml .ROUTE .ST- MED ONE Stop: 02/24/17 07:17 Last Admin: 02/24/17 07:58 Dose: 30 ml Propofol (Diprivan 20 Ml) Confirm Administered Dose 200 mg .ROUTE .ST-MED ONE Stop: 02/24/17 08:04 Propofol (Diprivan 20 Ml) Confirm Administered Dose 600 mg .ROUTE .ST-MED ONE Stop: 02/24/17 08:07 Propofol (Diprivan 20 Ml) Confirm Administered Dose 400 mg .ROUTE .ST-MED ONE Stop: 02/24/17 11:04 Propofol (Diprivan 20 Ml) Confirm Administered Dose 400 mg .ROUTE .ST-MED ONE Stop: 02/24/17 12:55 Rocuronium [place] (Zemuron) Confirm Administered Dose 50 mg .ROUTE .STK-MED ONE Stop: 02/24/17 08:04 Rocuronium [place] (Zemuron) Confirm Administered Dose 50 mg .ROUTE .ST-MED ONE Stop: 02/24/17 10:04 Scopolamine (Transderm-Scop) 1.5 mg TRDERM Q72H [facility] Stop: 02/27/17 05:00 Last Admin: 02/24/17 07:38 Dose: 1.5 mg Sodium Chloride (Normal Saline) 1,000 ml IRR .STK-MED ONE Stop: 02/24/17 09:31 Last Admin: 02/24/17 09:30 Dose: 1,000 ml Succinylcholine Chloride (Succinylcholine In Ns Pf) Confirm Administered Dose 200 mg .ROUTE .STK-MED ONE Stop: 02/24/17 08:04 Thrombin (Thrombin-Jmi) Confirm Administered Dose 10,000 unit .ROUTE .STK-MED ONE Stop: 02/24/17 07:17 Last Admin: 02/24/17 10:48 Dose: 5,000 unit - Exam General: alert, oriented HEENT: Pupils equal, Pupils reactive Neck: supple Back Exam: Paraspinal Tenderness Extremities: normal pulses, no calf tenderness Skin: warm, dry, intact Wound/Incisions: healing well, drainage Neurological: no new focal deficit Psy/Mental Status: alert, normal affect Physical Findings Comments:: Continued left ankle dorsiflexion weakness. Good sensation in first web space. Has some pain localized to right ankle. Pain controlled with tylenol. - Problem List & Annotations (1) Status post lumbar spinal fusion SNOMED Code(s): 870686217, 139831539, 995488798 Code(s): Z98.1 - ARTHRODESIS STATUS Status: Acute Current Visit: Yes Annotation/Comment:: L 4 - S 1 (2) Spinal stenosis of lumbar region SNOMED Code(s): 16239221 Code(s): M48.06 - SPINAL STENOSIS, LUMBAR REGION Status: Chronic Current Visit: No - Problem List Review Problem List Initiated/Reviewed/Updated: Yes - My Orders Last 24 Hours: My Active Orders 02/27/17 10:12 Ready for Discharge [RC] PER UNIT ROUTINE - Plan Plan:: ASSESSMENT AND PLAN - POD 3 L4-S1 TLIF DC today to home pt will have one of two daughters caring for her all day with additional group home visits instructions for dressing care on dc instructions sent with tramadol pt will advise psychiatrist additional use of xanax up to tid f/u 4 weeks in clinic
--- NOTE | 2017-02-27 11:37 | DISCH ---
PRIMARY DIAGNOSIS: Spinal stenosis. SECONDARY DIAGNOSIS: Spondylolisthesis, lumbar region. PROCEDURE: Posterior lumbar interbody fusion, L4 through S1. HEALTH AND SAFETY MANAGER: Luis Gregory MD, hospitalist. DISCHARGE CONDITION: Good. DISCHARGE DIET: Regular diet. DISCHARGE DISPOSITION: To home. FOLLOWUP: With Dr. Briceno in one month. AMBULATION: As tolerated. Do not lift over 10 pounds and wear brace when out of bed. DISCHARGE MEDICATIONS: Include tramadol 50 mg p.o. q.6 hours p.r.n. pain, #120 no refill; Xanax 0.5 mg p.o. t.i.d. p.r.n. anxiety; citalopram 5 mg p.o. daily; Remeron 22.5 mg p.o. at bedtime; acetaminophen 500 mg p.o. q.4 hours p.r.n. pain; vitamin D3 one p.o. daily; glucosamine 1000 mg p.o. daily; multivitamin one p.o. daily. ALLERGIES: LACTOSE. SUMMARY OF HOSPITAL STAY: The patient was admitted on service date 02/24 for the above- mentioned diagnosis and procedure. She was kept postoperatively for physical therapy, pain control, and occupational therapy. She did well postoperatively. She did have a postoperative left foot drop for which she was prescribed ankle-foot orthosis. She was placed on Decadron for 24 hours as well as postoperative antibiotics. She did well with ambulation and therapy. She did have increased anxiety while in the hospital. She was fitted for the ankle-foot orthosis. In the hospital, she was fitted for the back brace prior to our visit. She was discharged home on postoperative day #3 in good condition. It is our understanding that she has two daughters, at least one of them will be with her 24 hours a day. She does have [facility] coming into her home. I have given her prescription for tramadol. She did state that she is on Xanax and maybe going through more of that up to 3 times a day. I advised to contact her prescribing physician and make him aware. I will see her in one month postoperatively.
== END 2017-02-27 13:52 | disposition home or self-care (01) | DRG 460 ==
LOC: JP.SDS 06:13 → JP.MS 14:34
PROVIDERS: ADMIT Orthopaedic Surgery; ATTEND Orthopaedic Surgery
PROC: 0SG30AJ Fusion of Lumbosacral Joint with Interbody Fusion Device, Posterior Approach, Anterior Column, Open Approach (ICD-10-PCS; principal; 2017-02-24)
PROC: 0QH004Z Insertion of Internal Fixation Device into Lumbar Vertebra, Open Approach (ICD-10-PCS; 2017-02-24)
DX: M48.07 Spinal stenosis, lumbosacral region (principal); M43.16 Spondylolisthesis, lumbar region; F32.9 Major depressive disorder, single episode, unspecified; F41.9 Anxiety disorder, unspecified; M21.372 Foot drop, left foot
CPT/HCPCS: 36415; 72100; 72100-26; 80048; 85025; 94762; 97110-GP; 97112-GP; 97162-GP; 97165-GO; 97530-GP; 97535-GP; A9270-GY; C1713; C1776; J0690; J1100; J1170; J1885; J2405; J2704; J2795; J3010; J7030; J7040; J7050; J7120